=== PATIENT | male | born 1960 | race Caucasian/White ===

== ENCOUNTER 2020-03-01 16:05 | Outpatient (CLI) | payer SELFPAY ==
--- NOTE | 2020-03-01 15:30 | US_ITS ---
WS: [id number] Abdomen ultrasound, 03/01/2020 Clinical Data: abdominal pain Comparison: None. Findings: The pancreas shows no cyst, pseudocyst or evidence of pancreatitis. The liver shows no cysts, masses or dilated intrahepatic ducts. The liver is slightly enlarged with f atty infiltration. The gallbladder has no stones or sludge. The wall measures 0.2 cm with no pericholecystic fluid. The common bile duct is 0.5 cm and no intraductal abnormalities are noted. The right kidney is 11.6 cm. Is a small right renal cyst measuring 2.29 x 2.58 x 2.61 cm. The left ki dney is 11.3 cm. No cysts, masses or hydronephrosis is seen. There may be a small left renal calculus . The abdominal aorta is not dilated and the inferior vena cava has normal flow. No vascular abnormalit ies are seen. The spleen measures 12.6 cm and there are no intrasplenic masses or capsular abnormalities. US/US abdomen complete* [id number] Impression: 1. Minimal hepatomegaly with fatty infiltration. 2. Right renal cyst and possible left renal stone.
[2020-03-01 16:52] LABS: Basophils % 0.5 %; Eosinophils # 0.1 10^3/uL (0.0-0.8); Eosinophils % 1.9 %; Hematocrit 41.9 % (42.0-52.0); Hemoglobin 14.1 g/dL (11.7-16.6); Lymphocytes % 32.1 %; Mean Corpuscular HGB Conc 33.7 g/dL (30.0-36.0); Mean Corpuscular Hemoglobin 31.1 pg (28.0-34.0); Mean Corpuscular Volume 92.3 fL (80-94); Mean Platelet Volume 10.7 fL (7.4-10.4); Monocytes % 15.7 %; Neutrophils # 3.1 10^3/uL (1.8-7.7); Neutrophils % 49.6 %; Nucleated Red Blood Cells % 0 %; Platelet Count 132 10^3/cmm (130-400); Red Blood Count 4.54 10^6/uL (4.1-5.3); White Blood Count 6.3 10^3/uL (4.0-10.0)
[2020-03-01 17:06] LABS: Alanine Aminotransferase 11 U/L (0-41); Albumin Level 4.6 g/dL (3.5-5.2); Alkaline Phosphatase 48 IU/L (40-130); Anion Gap 16.3 (5-19); Aspartate Amino Transferase 17 U/L (0-40); Blood Urea Nitrogen 14 mg/dL (6-20); Calcium 9.1 mg/dL (8.5-10.5); Carbon Dioxide 28 mmol/L (22-29); Chloride 102 mmol/L (98-107); Glomerular Filtration Rate 68.8 mL/min (90-130); Glucose 98 mg/dL (65-115); Lipase 14 U/L (13-60); Osmolality Calculated 290 mOsm/kg (285-295); Potassium 4.3 mmol/L (3.5-5.1); Sodium 142 mmol/L (136-145); Total Bilirubin 0.4 mg/dL (0.15-1.2); Total Protein 7.6 g/dL (6.6-8.7)
[2020-03-01 17:52] LABS: Urine Appearance Clear (CLEAR); Urine Color Yellow (Yellow)
[2020-03-01 17:53] LABS: Add Urine Culture? No; Bacteria Urine TRACE; Bilirubin Urine Neg (NEGATIVE); Blood Urine Neg (Negative); Glucose Urine UA Norm (Normal); Ketones Urine 1+ (Negative); Leukocyte Esterase Urine Negative (Negative); Mucus Urine 1+; Nitrate Urine Negative (Negative); Protein Urine Neg (Negative); Squamous Epithelial Cell Urine 0-4 (0-5); Urobilinogen Urine 1 mg/dL (Negative); WBC Urine 0-4 /hpf (0-5); pH Urine 7 (5-7)
== END 2020-03-01 16:06 | disposition home or self-care (01) ==
LOC: RAD 16:08
PROVIDERS: Visit Provider Nurse Practitioner Family
DX: R10.9 Unspecified abdominal pain (principal); K76.0 Fatty (change of) liver, not elsewhere classified; Q61.01 Congenital single renal cyst
CPT/HCPCS: 36415; 76700; 80053; 81001; 83690; 85025

== ENCOUNTER → 2021-02-22 11:47 | Outpatient (BNVA) | payer SELFPAY | PROVIDERS: Visit Provider Nurse Practitioner Family | DX: I10 Essential (primary) hypertension (principal); E55.9 Vitamin D deficiency, unspecified; Z79.899 Other long term (current) drug therapy | CPT/HCPCS: 80053; 80061; 81003; 82306; 83036; 84443; 85025 ==

== ENCOUNTER → 2022-07-04 14:16 | Outpatient (BNVA) | payer SELFPAY | PROVIDERS: Visit Provider Nurse Practitioner | DX: I10 Essential (primary) hypertension (principal); M62.838 Other muscle spasm | CPT/HCPCS: 80053; 83735; G0103 ==

== ENCOUNTER → 2024-06-05 16:33 | Outpatient (BNVA) | payer SELFPAY | PROVIDERS: PCP Nurse Practitioner Family; Visit Provider Nurse Practitioner Family | DX: K59.00 Constipation, unspecified (principal) | CPT/HCPCS: 74018; 80053; 81000 ==

== ENCOUNTER → 2024-09-02 09:05 | Outpatient (BNVA) | payer SELFPAY | PROVIDERS: PCP Nurse Practitioner Family; Visit Provider Nurse Practitioner Family | DX: I10 Essential (primary) hypertension (principal); Z79.899 Other long term (current) drug therapy; Z13.6 Encounter for screening for cardiovascular disorders; Z12.5 Encounter for screening for malignant neoplasm of prostate; E55.9 Vitamin D deficiency, unspecified | CPT/HCPCS: 80053 ==